=== PATIENT | female | born 1985 | race Caucasian/White ===

== ENCOUNTER 2020-12-05 10:01 | Outpatient (REF) | payer OTHER, SELFPAY ==
[2020-12-05 12:14] LABS: TSH reflex Free T4 1.75 uIU/mL (0.32-4.0)
[2020-12-05 12:19] LABS: Alanine Aminotransferase 31 U/L (0-31); Albumin Level 4.5 g/dL (3.5-5.0); Alkaline Phosphatase 84 U/L (39-117); Anion Gap 15 (12-20); Aspartate Amino Transferase 19 U/L (5-31); Bilirubin Total 0.5 mg/dL (0.0-1.0); Blood Urea Nitrogen 6 mg/dL (9-16); Calcium 8.7 mg/dL (8.4-10.2); Carbon Dioxide 23 mmol/L (22-29); Chloride 107 mmol/L (96-108); Cholesterol 73 mg/dL; Estimated Glomerular Filt Rate > 60; Glucose Fasting 100 mg/dL (60-99); HDL Cholesterol 26 mg/dL; LDL Cholesterol Calculated 36 mg/dl; Potassium 3.5 mmol/L (3.3-5.1); Sodium 141 mmol/L (135-145); Total Protein 7.3 g/dL (6.5-8.0); Triglycerides 59 mg/dL
[2020-12-08 14:47] LABS: TS Negative Control Passed; TS Panel A 0; TS Panel B 1; TS Positive Control Passed; TSpotTB Negative (SeeBelow)
== END 2020-12-05 10:02 | disposition home or self-care (01) ==
LOC: HO.HMGCLDS 10:01
PROVIDERS: PCP Nurse Practitioner Family; Visit Provider Nurse Practitioner Family
DX: Z00.00 Encounter for general adult medical examination without abnormal findings (principal); Z11.1 Encounter for screening for respiratory tuberculosis
CPT/HCPCS: 36415; 80053; 80061; 84443; 86481

== ENCOUNTER 2021-07-27 15:31 | Outpatient (REF) | payer OTHER, SELFPAY ==
--- NOTE | ~2021-07-27 | XR_ITS ---
EXAMINATION: XR CHEST CLINICAL INFORMATION: Chest pain. COMPARISON: Several priors. Most recent of 05/16/19. TECHNIQUE: 2 views of the chest were obtained. FINDINGS: The lungs are well expanded and clear. The pleural spaces are clear. The heart and mediastinal structures are normal. Schmorl's nodes are noted at several levels in the thoracic spine and are unchanged. XR/XR chest 2V IMPRESSION: Unremarkable examination. No acute cardiopulmonary disease.
== END 2021-07-27 15:32 | disposition home or self-care (01) ==
LOC: HO.HMGCX 15:31
PROVIDERS: PCP Nurse Practitioner Family; Visit Provider Internal Medicine
DX: R07.9 Chest pain, unspecified (principal)
CPT/HCPCS: 71046

== ENCOUNTER 2021-08-14 00:45 | Emergency (ER) | payer OTHER, SELFPAY ==
--- NOTE | ~2021-08-14 | XR_ITS ---
EXAMINATION: XR elbow RT min 3V, XR forearm RT 2V CLINICAL INFORMATION: Trauma COMPARISON: None. FINDINGS: No acute fracture or dislocation. Joint spaces and articular surfaces are maintained. Soft tissues unremarkable without foreign body. No elbow joint effusion. XR/XR elbow RT min 3V IMPRESSION: No acute findings
--- NOTE | ~2021-08-14 | XR_ITS ---
EXAMINATION: XR elbow RT min 3V, XR forearm RT 2V CLINICAL INFORMATION: Trauma COMPARISON: None. FINDINGS: No acute fracture or dislocation. Joint spaces and articular surfaces are maintained. Soft tissues unremarkable without foreign body. No elbow joint effusion. XR/XR forearm RT 2V IMPRESSION: No acute findings
[2021-08-14 01:35] VITALS: BP 98/61; PULSE 86; RESP 18; TEMP 36.7; O2SAT 94; BMI 31.1
--- NOTE | 2021-08-14 05:27 | ED.EXTPRO ---
HPI - Extremity Problem General Chief complaint: Extremity Injury, Upper Stated complaint: right elbow dislocated? Time Seen by Provider: 08/14/21 01:46 Source: patient Mode of arrival: ambulatory Limitations: no limitations History of Present Illness HPI Narrative: Patient comes to the emergency room complaining of right elbow pain. Patient states her elbow started hurting yesterday for no reason. Patient denies any injury. No fever, no redness. Patient states that she is able to flex and extend her elbow but it hurts. Same with the wrist. Related Data Home Medications Medication Instructions Recorded Confirmed albuterol sulfate 90 mcg/actuation 2 puff INHALATION Q4-6H PRN 11/30/20 07/25/21 aerosol inhaler (ProAir HFA) Previous Rx's Medication Instructions Recorded cetirizine 10 mg tablet (Zyrtec) 10 mg PO DAILY 90 Days #90 tab 06/22/20 cholecalciferol (vitamin D3) 50 50 mcg PO DAILY 30 Days #30 tab 06/22/20 mcg (2,000 unit) tablet buspirone 7.5 mg tablet 7.5 mg PO BID 90 Days #180 tab 07/15/21 omeprazole 20 mg capsule,delayed 20 mg PO DAILY 90 Days #90 cap 07/15/21 release clotrimazole-betamethasone 1 1 appl TOPICAL BID 14 Days #30 ml 07/25/21 %-0.05 % lotion meloxicam 15 mg tablet (Mobic) 15 mg PO DAILY #14 tab 07/27/21 ibuprofen 400 mg tablet 400 mg PO Q6H PRN #14 tab 08/14/21 Allergies Allergy/AdvReac Type Severity Reaction Status Date / Time methylphenidate Allergy Intermediate N/V, RASH, Verified 08/14/21 01:34 [From RITALIN] INSOMNIA Sulfa (Sulfonamide Allergy Unknown hives Verified 08/14/21 01:34 Antibiotics) sulfamethoxazole Allergy Rash Verified 08/14/21 01:34 [From Bactrim] trimethoprim [From Bactrim] Allergy Rash Verified 08/14/21 01:34 SEAFOOD Allergy Severe SWELLING/RA Uncoded 07/25/21 12:26 SH shellfish Allergy Severe swellig/noah Uncoded 07/25/21 12:26 h Review of Systems Review of Systems: Constitutional : No Weight loss, No Fever, No Chills, No Night Sweats, No Fatigue, No Malaise ENT/Mouth : No Hearing loss, No Ear Pain, No Nasal Congestion, No Sinus Pain, No Hoarseness, No sore throat, No Rhinorrhea, No Swallowing Difficulty Eyes: No Eye Pain, No Swelling, No Redness, No Foreign Body, No Discharge, No Vision Changes Cardiovascular : No Chest Pain, No SOB, No Dyspnea on Exertion, No Orthopnea, No Edema, No Palpitations Respiratory : No Cough, No Sputum, No Wheezing, No Smoke Exposure, No Dyspnea Gastrointestinal : No Nausea, No Vomiting, No Diarrhea, No Constipation, No abdominal Pain, No Hematochezia, No Melena Genitourinary : no irregular bleeding, No Dysuria, No Urinary Frequency, No Hematuria, No Urinary Incontinence, No Urgency, No Flank Pain, No Urinary Flow Changes, No Hesitancy Musculoskeletal : Complaining of right elbow and right wrist pain. No Myalgias, No Joint Swelling Skin : No Skin Lesions, No rash Neuro : No Weakness, No Numbness, No Paresthesias, No Loss of Consciousness, No Dizziness, No Headache Psych : No Anxiety/Panic, No Depression, No SI/HI/AH/VH, No Social Issues, Heme/Lymph: No Bruising, No Bleeding,No Lymphadenopathy Endocrine : No Polyuria, No Polydipsia, No Temperature Intolerance [facility] Social History Social History Patient Tobacco Use Status: Current everyday Tobacco user Advance Directives: No Advance Directives Information Provided: Yes Physical Exam Vital Signs: Vital Signs: Last Vital Signs Temp 98.1 F 08/14/21 01:35 Pulse 86 08/14/21 01:35 Resp 18 08/14/21 01:35 BP 98/61 08/14/21 01:35 Pulse Ox 94 08/14/21 01:35 BMI result Body Mass Index 31.1 Const: Other: Appearance: Alert. Oriented X3. No acute distress. Eyes: Pupils equal, round and reactive to light. ENT: Pharynx normal. Neck: Normal inspection. Neck supple. No lymph nodes noted. No crepitus CVS: Normal heart rate and rhythm. Pulses normal. Normal S1 and S2 Respiratory: No respiratory distress. Breath sounds normal. No Wheezing. No rales Abdomen: Soft and nontender. No rigidity. No distention. good BS x4 Skin: Skin warm and dry. Normal skin color. Normal skin turgor. Extremities: No lower extremity edema. There is no erythema, no joint effusion, no palpable mass forming 80s. Patient is able to flex and extend the elbow and the wrist with normal range of motion. Neuro: Oriented X 3. No motor deficit. No sensory deficit. Moving all extermities. No slurred speech. Course Course Course Narrative: Patient's source of pain is likely bursitis. Physical exam was normal. X-rays normal Discharge Plan Discharge Clinical Impression: Bursitis Patient Disposition: Home, Self-Care Instructions: Elbow Bursitis (ED) Additional Instructions: Please follow-up with your primary care physician tomorrow. If you have any worsening or new symptoms, please return to the emergency room or call 911 Prescriptions: New ibuprofen 400 mg tablet 400 mg PO Q6H PRN (Reason: fever or pain) Qty: 14 RF: 0 No Action cholecalciferol (vitamin D3) 50 mcg (2,000 unit) tablet 50 mcg PO DAILY 30 Days Qty: 30 RF: 0 cetirizine [Zyrtec] 10 mg tablet 10 mg PO DAILY 90 Days Qty: 90 RF: 0 omeprazole 20 mg capsule,delayed release(DR/EC) 20 mg PO DAILY 90 Days Qty: 90 RF: 0 buspirone 7.5 mg tablet 7.5 mg PO BID 90 Days Qty: 180 RF: 0 albuterol sulfate [ProAir HFA] 90 mcg/actuation HFA aerosol inhaler 2 puff inhalation Q4-6H PRNRF: 0 clotrimazole-betamethasone 1-0.05 % lotion 1 appl topical BID 14 Days Qty: 30 RF: 2 meloxicam [Mobic] 15 mg tablet 15 mg PO DAILY Qty: 14 RF: 0
== END 2021-08-14 06:34 | disposition home or self-care (01) ==
PROVIDERS: Emergency Provider Emergency Medicine; PCP Nurse Practitioner Family
DX: M70.31 Other bursitis of elbow, right elbow (principal); Y93.9 Activity, unspecified; M25.521 Pain in right elbow
CPT/HCPCS: 73080; 73090; 99283

== ENCOUNTER 2022-03-28 16:08 | Outpatient (REF) | payer OTHER, SELFPAY ==
--- NOTE | ~2022-03-28 | XR_ITS ---
EXAMINATION: XR RIBS, LEFT CLINICAL INFORMATION: Pleurodynia COMPARISON: July 27, 2021 and May 16, 2019 TECHNIQUE: 3 views of the left ribs were obtained. PA chest. FINDINGS: Lungs are clear. No consolidation, pneumothorax, or pleural effusion. The cardiomediastinal silhouette and pulmonary vasculature are normal. Osseous structures are unremarkable. Ribs are intact. No fractures are identified. No destructive bony lesion identified. XR/XR ribs LT min 3V w CXR1V IMPRESSION: No acute parenchymal disease within the chest. No left rib abnormality appreciated.
== END 2022-03-28 16:09 | disposition home or self-care (01) ==
LOC: HO.HMGCX 16:08
PROVIDERS: PCP Nurse Practitioner Family; Visit Provider Nurse Practitioner Family
DX: R07.81 Pleurodynia (principal)
CPT/HCPCS: 71101

== ENCOUNTER 2022-04-10 12:26 | Outpatient (REF) | payer OTHER, SELFPAY ==
[2022-04-10 14:00] LABS: MANUAL DIFF FLAG NO
[2022-04-10 14:07] LABS: Basophils Absolute Auto 0.1 X10*3/uL (0.0-0.2); Basophils Percent Auto 0.6 % (0-2); Eosinophils Absolute Auto 0.2 X10*3/uL (0.0-0.4); Eosinophils Percent Auto 1.6 % (0-4); Hematocrit 41.3 % (37.0-47.0); Hemoglobin 13.7 g/dl (12.0-16.0); Imm Gran Abs Auto 0.05 X10*3/uL (0.00-0.03); Imm Gran Pct Auto 0.5 % (0.0-0.4); Lymphocytes Absolute Auto 2.3 X10*3/uL (1.2-4.9); Lymphocytes Percent Auto 20.6 % (20-40); Mean Corpuscular HGB Conc 33.2 g/dl (31.0-35.0); Mean Corpuscular Hemoglobin 30.2 pg (27.0-33.0); Mean Platelet Volume 10.1 fL (9.4-12.3); Monocytes Absolute Auto 0.6 X10*3/uL (0.1-1.2); Neutrophils Absolute Auto 7.8 x10*3/uL (2.0-8.3); Neutrophils Percent Auto 71.7 % (45-73); Platelet Count 347 X10*3/uL (160-400); Red Blood Count 4.54 X10*6/uL (4.20-5.50); Red Cell Distribution Width 13.8 % (11.0-16.0); White Blood Count 10.9 X10*3/uL (4.8-10.8)
[2022-04-10 14:15] LABS: Appearance Urine Clear; Color Urine Yellow; Glucose Urine UA Negative (Negative); Leukocyte Esterase Urine Negative (Negative); Nitrite Urine Negative (Negative); PH 6.5 (5.0-9.0); Specific Gravity - Urine <= 1.005 (1.005-1.025); Urine Blood Negative (Negative); Urine Ketones Negative (Negative); Urine Protein Negative (Neg-Trace)
[2022-04-10 14:23] LABS: Alanine Aminotransferase 22 U/L (0-31); Albumin Level 4.4 g/dL (3.5-5.0); Alkaline Phosphatase 75 U/L (39-117); Anion Gap 14 (12-20); Aspartate Amino Transferase 16 U/L (5-31); Bilirubin Total 0.4 mg/dL (0.0-1.0); Blood Urea Nitrogen 5 mg/dL (9-16); Carbon Dioxide 24 mmol/L (22-29); Chloride 108 mmol/L (96-108); Cholesterol 77 mg/dL; Estimated Glomerular Filt Rate > 60; Glucose Fasting 85 mg/dL (60-99); HDL Cholesterol 31 mg/dL; LDL Cholesterol Calculated 37 mg/dl; Potassium 3.7 mmol/L (3.3-5.1); Sodium 142 mmol/L (135-145); Total Protein 7.1 g/dL (6.5-8.0); Triglycerides 46 mg/dL
[2022-04-10 14:42] LABS: TSH reflex Free T4 2.18 uIU/mL (0.32-4.0)
== END 2022-04-10 12:27 | disposition home or self-care (01) ==
LOC: HO.HMGCLDS 12:26
PROVIDERS: PCP Nurse Practitioner Family; Visit Provider Nurse Practitioner Family
DX: Z00.00 Encounter for general adult medical examination without abnormal findings (principal)
CPT/HCPCS: 36415; 80053; 80061; 81003; 84443; 85025

== ENCOUNTER 2022-04-12 10:51 | Outpatient (REF) | payer OTHER, SELFPAY ==
[2022-04-12 13:52] LABS: MANUAL DIFF FLAG NO
[2022-04-12 13:59] LABS: Basophils Absolute Auto 0.1 X10*3/uL (0.0-0.2); Basophils Percent Auto 0.8 % (0-2); Eosinophils Absolute Auto 0.2 X10*3/uL (0.0-0.4); Eosinophils Percent Auto 1.9 % (0-4); Hematocrit 41.8 % (37.0-47.0); Hemoglobin 13.7 g/dl (12.0-16.0); Imm Gran Abs Auto 0.05 X10*3/uL (0.00-0.03); Imm Gran Pct Auto 0.6 % (0.0-0.4); Lymphocytes Absolute Auto 2.3 X10*3/uL (1.2-4.9); Lymphocytes Percent Auto 25.6 % (20-40); Mean Corpuscular HGB Conc 32.8 g/dl (31.0-35.0); Mean Corpuscular Hemoglobin 30.2 pg (27.0-33.0); Mean Corpuscular Volume 92.1 fL (80.0-98.0); Mean Platelet Volume 10.6 fL (9.4-12.3); Monocytes Absolute Auto 0.6 X10*3/uL (0.1-1.2); Monocytes Percent Auto 6.3 % (2-11); Neutrophils Absolute Auto 5.9 x10*3/uL (2.0-8.3); Neutrophils Percent Auto 64.8 % (45-73); Platelet Count 345 X10*3/uL (160-400); Red Blood Count 4.54 X10*6/uL (4.20-5.50); White Blood Count 9.1 X10*3/uL (4.8-10.8)
== END 2022-04-12 10:52 | disposition home or self-care (01) ==
LOC: HO.HMGCLDS 10:51
PROVIDERS: PCP Nurse Practitioner Family; Visit Provider Nurse Practitioner Family
DX: R07.81 Pleurodynia (principal); D72.829 Elevated white blood cell count, unspecified
CPT/HCPCS: 36415; 85025

== ENCOUNTER 2022-07-18 11:21 | Outpatient (REF) | payer OTHER, SELFPAY ==
[2022-07-18 14:45] LABS: D Dimer High Sensitivity < 150 NG/ML
== END 2022-07-18 11:22 | disposition home or self-care (01) ==
LOC: HO.HMGCLDS 11:21
PROVIDERS: PCP Nurse Practitioner Family; Visit Provider Nurse Practitioner Family
DX: R07.81 Pleurodynia (principal)
CPT/HCPCS: 36415; 85379

== ENCOUNTER 2022-09-12 08:55 | Outpatient (REF) | payer OTHER, SELFPAY ==
--- NOTE | ~2022-09-12 | CT_ITS ---
EXAMINATION: CT ABDOMEN AND PELVIS WITH CONTRAST CLINICAL INFORMATION: Abdominal pain COMPARISON: None TECHNIQUE: Multidetector volumetric images were obtained from the superior aspect of the liver through the pubic symphysis following administration 85 mL of Omnipaque 350 intravenous contrast. Sagittal and coronal reformatted images were obtained on the technologist's workstation. Oral contrast: No This CT examination was performed using dose optimization techniques as appropriate, variously including the following: *Automated exposure control *Adjustment of mA and/or kV according to patient size (this includes techniques or standardized protocols for targeted exams where dose is matched to indication/reason for exam; i.e. extremities or head) *Use of iterative reconstruction technique DLP: 391 mGy-cm FINDINGS: LUNG BASES: The lung bases are clear. Heart size is normal. LIVER, GALLBLADDER, AND BILIARY TREE: The liver is normal in size, shape, and attenuation. No focal hepatic lesion or biliary ductal dilatation is present. There is a hyperdense bile in the gallbladder without wall thickening. No pericholecystic fluid collection. PANCREAS: Unremarkable. SPLEEN: Unremarkable. ADRENAL GLANDS: Unremarkable. KIDNEYS AND URETERS: The kidneys are normal in size, shape, and attenuation. No hydronephrosis, hydroureter, or calculi seen. No perinephric stranding. BLADDER: There GASTROINTESTINAL TRACT: The small and large bowel are unremarkable. The appendix is unremarkable. ABDOMINAL WALL: There is a small lumbar canal hernia and a supraumbilical hernia containing fat. LYMPH NODES: Normal. VASCULAR: Unremarkable. PELVIC VISCERA: The uterus is anteverted and appears unremarkable. No free air or free fluid seen. There is no abnormal pelvic or inguinal lymph nodes. OSSEOUS STRUCTURES: Unremarkable. CT/CT abdomen pelvis w IV con IMPRESSION: 1. No acute intra-abdominal process seen. 2. Hyperdense bile in the gallbladder without wall thickening or pericholecystic fluid collection. Fleischner guidelines were followed.
[2022-09-12] MEDS: iohexoL 350 MG/ML 100 ML INFUS..BTL IV (11:13)
[2022-09-12] MEDS: Barium Sulfate Oral (Vanilla) 450 ML ORAL.SUSP 900 ML PO (11:14)
== END 2022-09-12 08:56 | disposition home or self-care (01) ==
LOC: HO.CT 08:55
PROVIDERS: PCP Nurse Practitioner Family; Visit Provider Nurse Practitioner Family
DX: R10.9 Unspecified abdominal pain (principal)
CPT/HCPCS: 74177; Q9967

== ENCOUNTER 2022-09-26 15:21 | Outpatient (REF) | payer OTHER, SELFPAY ==
--- NOTE | ~2022-09-26 | XR_ITS ---
EXAMINATION: XR RIBS, BILATERAL CLINICAL INFORMATION: Pleurodynia. COMPARISON: None TECHNIQUE: Frontal view of chest. 3 views of the bilateral ribs were obtained. FINDINGS: Lungs are clear. No consolidation, pneumothorax, or pleural effusion. The cardiomediastinal silhouette and pulmonary vasculature are normal. Osseous structures are unremarkable. Ribs are intact. No fractures are identified. XR/XR ribs BI 3V IMPRESSION: Unremarkable examination.
--- NOTE | ~2022-09-26 | XR_ITS ---
EXAMINATION: XR CHEST CLINICAL INFORMATION: Pleurodynia. COMPARISON: Chest and rib radiographs dated 03/28/2022. TECHNIQUE: 2 views of the chest were obtained. FINDINGS: No significant abnormality is noted involving the heart, lungs, mediastinum, bony thorax or soft tissues. XR/XR chest 2V IMPRESSION: No acute cardiopulmonary process.
== END 2022-09-26 15:22 | disposition home or self-care (01) ==
LOC: HO.HMGCX 15:21
PROVIDERS: PCP Nurse Practitioner Family; Visit Provider Physician Assistant Medical
DX: R07.81 Pleurodynia (principal)
CPT/HCPCS: 71046; 71110

== ENCOUNTER 2022-10-10 10:18 | Outpatient (REF) | payer OTHER, SELFPAY ==
[2022-10-10 11:19] LABS: MANUAL DIFF FLAG NO
[2022-10-10 11:29] LABS: Appearance Urine Clear; Color Urine Yellow; Glucose Urine UA Negative (Negative); Leukocyte Esterase Urine Trace (Negative); Nitrite Urine Negative (Negative); Specific Gravity - Urine <= 1.005 (1.005-1.025); UMIC TRIGGER UACC YES; Urine Blood Negative (Negative); Urine Ketones Negative (Negative); Urine Protein Negative (Neg-Trace)
[2022-10-10 11:38] LABS: Basophils Absolute Auto 0.1 X10*3/uL (0.0-0.2); Basophils Percent Auto 0.6 % (0-2); Eosinophils Absolute Auto 0.1 X10*3/uL (0.0-0.4); Eosinophils Percent Auto 1.4 % (0-4); Hematocrit 44.9 % (37.0-47.0); Hemoglobin 14.8 g/dl (12.0-16.0); Imm Gran Abs Auto 0.03 X10*3/uL (0.00-0.03); Imm Gran Pct Auto 0.4 % (0.0-0.4); Lymphocytes Percent Auto 23.9 % (20-40); Mean Corpuscular Hemoglobin 29.8 pg (27.0-33.0); Mean Corpuscular Volume 90.3 fL (80.0-98.0); Mean Platelet Volume 9.9 fL (9.4-12.3); Monocytes Absolute Auto 0.4 X10*3/uL (0.1-1.2); Monocytes Percent Auto 4.9 % (2-11); Neutrophils Absolute Auto 5.8 x10*3/uL (2.0-8.3); Neutrophils Percent Auto 68.8 % (45-73); Platelet Count 358 X10*3/uL (160-400); Red Blood Count 4.97 X10*6/uL (4.20-5.50); Red Cell Distribution Width 13.3 % (11.0-16.0); White Blood Count 8.4 X10*3/uL (4.8-10.8)
[2022-10-10 11:57] LABS: Bacteria Urine Trace (None Seen); Hyaline Casts Urine 0-2 /LPF (0-2); RBC Urine 0-2 /HPF (0-2); Squamous Epithelial Cell Urine 0-2 /HPF (0-2); WBC Urine 0-5 /HPF (0-5)
[2022-10-10 12:16] LABS: Alanine Aminotransferase 27 U/L (0-31); Albumin Level 4.6 g/dL (3.5-5.0); Alkaline Phosphatase 88 U/L (39-117); Anion Gap 12 (12-20); Aspartate Amino Transferase 21 U/L (5-31); Bilirubin Total 0.6 mg/dL (0.0-1.0); Blood Urea Nitrogen 5 mg/dL (9-16); Calcium 8.9 mg/dL (8.4-10.2); Carbon Dioxide 25 mmol/L (22-29); Chloride 107 mmol/L (96-108); Estimated Glomerular Filt Rate > 60; Glucose Random 73 mg/dL (60-115); Lipase 27 U/L (8-78); Potassium 3.6 mmol/L (3.3-5.1); Sodium 140 mmol/L (135-145); TSH reflex Free T4 2.37 uIU/mL (0.32-4.0); Total Protein 7.4 g/dL (6.5-8.0)
[2022-10-16 14:29] LABS: Transglutaminase Ab IgG <1.0 U/mL; Transglutaminase IgA <1.0 U/mL
== END 2022-10-10 10:19 | disposition home or self-care (01) ==
LOC: HO.HMGCLDS 10:18
PROVIDERS: PCP Nurse Practitioner Family; Visit Provider Nurse Practitioner Family
DX: R10.13 Epigastric pain (principal); R10.9 Unspecified abdominal pain
CPT/HCPCS: 36415; 80053; 81001; 83690; 84443; 85025; 86364

== ENCOUNTER → 2022-10-22 14:34 | Outpatient (BNVA) | payer OTHER, SELFPAY | PROVIDERS: PCP Nurse Practitioner Family; Visit Provider Surgery | DX: M94.0 Chondrocostal junction syndrome [Tietze] (principal) | CPT/HCPCS: 99202 ==

== ENCOUNTER 2023-04-10 13:37 | Outpatient (AMB) | payer OTHER, SELFPAY ==
[2023-04-10 13:40] VITALS: BP 124/68; PULSE 77; O2SAT 98; BMI 28.7
--- NOTE | 2023-04-10 13:40 | MHC.PC.OV ---
Vital Signs 04/10/23 13:40 Height 5 ft 3 in Weight 162 lb 4 oz BMI 28.7 BP 124/68 Blood Pressure Location Rt brachial Position Sitting Pulse 77 Pulse Source Pulse Oximeter Pulse Oximetry (%) 98 Oxygen Delivery Method Room Air Intake Visit Reasons: PE Allergies methylphenidate [From RITALIN] Allergy (Intermediate, Verified 04/10/23 13:43) N/V, RASH, INSOMNIA Sulfa (Sulfonamide Antibiotics) Allergy (Unknown, Verified 04/10/23 13:43) hives sulfamethoxazole [From Bactrim] Allergy (Verified 04/10/23 13:43) Rash trimethoprim [From Bactrim] Allergy (Verified 04/10/23 13:43) Rash SEAFOOD Allergy (Severe, Uncoded 04/10/23 13:43) SWELLING/RASH shellfish Allergy (Severe, Uncoded 04/10/23 13:43) swellig/rash Medication List - Last Reconciled 04/10/23 by ARNOLDO Lomeli albuterol sulfate 90 mcg/actuation (ProAir HFA) 2 puffs inhalation Q4-6H PRN buspirone 7.5 mg PO BID 90 days cetirizine (Zyrtec) 10 mg PO DAILY 90 days cholecalciferol (vitamin D3) 50 mcg PO DAILY clotrimazole-betamethasone 1-0.05 % 1 appl topical BID 2 weeks naproxen 500 mg PO BID PRN 14 days norethindrone-e.estradiol-iron 1 mg-20 mcg (21)/75 mg (7) (08/30 (28)) 1 tab PO DAILY omeprazole 20 mg PO DAILY 90 days Tobacco use date assessed: 04/10/23 Dental Screening Dental Screen Date: 04/10/23 Did you have a dental visit in the last 12 months?: No Did you have a dental problem in the last 6 months where you did not have access to dental care?: No Was dental information given to patient?: No HPI PE HPI Details Pt is here for a PE. Will order labs. Has a outreach manager. [facility] History H/O thumb surgery Family History Paternal Grandmother Mental health disorder Social History Housing: Homeless Patient Tobacco Use Status: Current everyday Tobacco user Cigarettes Per Day: 10 e-Cigarette/Vaping Use: Never Used Second Hand Smoke Exposure: Yes service: No Current occupational status: employed Current occupation: [employer] Current occupational exposures/hazards: No Cognitive needs: No Hearing needs: No Vision needs: No Questionnaire Thrive Questionnaire Date Thrive assessed: 04/09/22 CYNDI-7 AMB Questionnaire CYNDI-7 Date CYNDI - 7 assessed: 04/09/22 Source: Developed by Drs. Oliver Brink, Quin Hunt, Torres Randhawa and colleagues, with an educational maddi from [employer]. Review of Systems Const Denies chills and Denies fever(s) Eyes Denies blurry vision ENT Denies vertigo, Denies dizziness and Denies sore throat Card Denies chest pain at rest, Denies chest pain with activity, Denies diaphoresis, Denies dyspnea and Denies dyspnea on exertion Resp Denies cough, Denies dyspnea, Denies dyspnea on exertion and Denies wheezing GI Denies abdominal pain, Denies melena, Denies hematochezia, Denies constipation, Denies diarrhea and Denies loose stools Denies hematuria Musc Denies numbness and Denies tingling Skin/Breast Denies lesions Neuro Denies vertigo, Denies dizziness, Denies numbness and Denies tingling Psych Denies anxiety, Denies depression, Denies homicidal ideation, Denies suicidal ideation and Denies other (substance abuse) Aller/Immun Denies wheezing Physical exam (Primary Care) Vital Signs: Last Vital Signs Pulse 77 04/10/23 13:40 BP 124/68 04/10/23 13:40 Pulse Ox 98 04/10/23 13:40 Oxygen Delivery Method Room Air 04/10/23 13:40 BMI result Body Mass Index 28.7 Tobacco/Smoking Status: Tobacco use Status Tobacco use date assessed 04/10/23 04/10/23 13:46 Patient Tobacco Use Status Current everyday Tobacco 04/10/23 13:46 e-Cigarette/Vaping Use Never Used 04/10/23 13:46 Thrive Assessment: Date of Thrive Assessment Date Thrive assessed 04/09/22 04/10/23 13:46 Const General: cooperative Nutritional Appearance: well nourished Orientation/consciousness: patient oriented x3 HENMT Head: Yes normal to inspection, Yes normocephalic and Yes atraumatic Ears: TM's normal bilaterally Eyes General: appearance normal, both eyes and all related structures Alignment and Position: alignment normal and position normal Neck Neck: Yes normal visual inspection and Yes no lymphadenopathy Thyroid: Thyroid normal Resp Effort & Inspection: normal respiratory effort Auscultation: clear to auscultation bilaterally Cardio Rate: regular rate Rhythm: regular rhythm Heart sounds: S1 normal heart sound present, S2 normal heart sound present and no murmurs GI Palpation (GI): Soft to palpation and nontender Auscultation: normal bowel sounds Skin Rashes: no rashes Neuro General: patient oriented x3, moves all extremities, no focal motor deficits and deep tendon reflexes 2+ bilaterally Romberg Test: Negative Extrem Other: tinea pedis noted to bilat feet, faint erythema to distal feet Psych Appearance: grossly normal Mental Status: mental status grossly normal Speech and movement: Normal speech and movement present Affect: normal affect Attitude: cooperative Thought process: Normal thought process present Thought content: Normal thought content present Insight: Good insight present (Psych) Judgement: Good judgement present (Psych) Assessment and Plan Assessment & Plan (1) Physical exam: Code(s): Z. - Encounter for general adult medical examination without abnormal findings Plan: Labs ordered Plan The patient agreed to the use of a medical sales representative for this encounter. Scribed for ARNOLDO Mcdonnell by Janina Ann medical sales representative, on 04/10/2023 at 13:55 EST. Orders: Orders Comprehensive [place]. Panel Fast Today Z00.00 - Encounter for general adult medical examination without abnormal findings Lipid Panel Today Z00.00 - Encounter for general adult medical examination without abnormal findings TSH reflex Free T4 Today Z00.00 - Encounter for general adult medical examination without abnormal findings Complete Blood Count Auto Diff Today Z00.00 - Encounter for general adult medical examination without abnormal findings UA CC w/rflx Micro + Cult Today Z00.00 - Encounter for general adult medical examination without abnormal findings Coding Level of Care Code Est Pt Prev Care [id number](99034) Diagnoses Physical exam Z00.00
== END 2023-04-10 15:06 | disposition home or self-care (01) ==
PROVIDERS: Visit Provider Nurse Practitioner Family
DX: Z00.00 Encounter for general adult medical examination without abnormal findings (principal)
CPT/HCPCS: 99395

== ENCOUNTER 2023-04-17 10:13 | Outpatient (REF) | payer OTHER, SELFPAY ==
[2023-04-17 13:26] LABS: MANUAL DIFF FLAG NO
[2023-04-17 13:43] LABS: Basophils Absolute Auto 0.1 X10*3/uL (0.0-0.2); Basophils Percent Auto 0.8 % (0-2); Eosinophils Absolute Auto 0.2 X10*3/uL (0.0-0.4); Eosinophils Percent Auto 1.8 % (0-4); Hematocrit 43.6 % (37.0-47.0); Hemoglobin 14.5 g/dl (12.0-16.0); Imm Gran Abs Auto 0.03 X10*3/uL (0.00-0.03); Imm Gran Pct Auto 0.4 % (0.0-0.4); Lymphocytes Percent Auto 22.9 % (20-40); Mean Corpuscular HGB Conc 33.3 g/dl (31.0-35.0); Mean Corpuscular Volume 90.3 fL (80.0-98.0); Mean Platelet Volume 10.3 fL (9.4-12.3); Monocytes Absolute Auto 0.5 X10*3/uL (0.1-1.2); Monocytes Percent Auto 6.2 % (2-11); Neutrophils Absolute Auto 5.8 x10*3/uL (2.0-8.3); Neutrophils Percent Auto 67.9 % (45-73); Platelet Count 314 X10*3/uL (160-400); Red Blood Count 4.83 X10*6/uL (4.20-5.50); Red Cell Distribution Width 13.6 % (11.0-16.0); White Blood Count 8.5 X10*3/uL (4.8-10.8)
[2023-04-17 13:47] LABS: Appearance Urine Clear; Color Urine Yellow; Glucose Urine UA Negative (Negative); Leukocyte Esterase Urine Negative (Negative); Nitrite Urine Negative (Negative); Specific Gravity - Urine 1.015 (1.005-1.025); Urine Blood Negative (Negative); Urine Ketones Negative (Negative); Urine Protein Negative (Neg-Trace)
[2023-04-17 14:05] LABS: Alanine Aminotransferase 36 U/L (0-31); Albumin Level 4.1 g/dL (3.5-5.0); Alkaline Phosphatase 82 U/L (39-117); Anion Gap 12 (12-20); Aspartate Amino Transferase 25 U/L (5-31); Bilirubin Total 0.5 mg/dL (0.0-1.0); Blood Urea Nitrogen 4 mg/dL (9-16); Calcium 8.8 mg/dL (8.4-10.2); Carbon Dioxide 24 mmol/L (22-29); Chloride 107 mmol/L (96-108); Cholesterol 73 mg/dL (<200); Estimated Glomerular Filt Rate > 60; Glucose Fasting 78 mg/dL (60-99); HDL Cholesterol 28 mg/dL (>40); LDL Cholesterol Calculated 33 mg/dL (<100); Potassium 3.6 mmol/L (3.3-5.1); Sodium 139 mmol/L (135-145); Triglycerides 64 mg/dL (<150)
== END 2023-04-17 10:14 | disposition home or self-care (01) ==
LOC: HO.HMGCLDS 10:13
PROVIDERS: PCP Nurse Practitioner Family; Visit Provider Nurse Practitioner Family
DX: Z00.00 Encounter for general adult medical examination without abnormal findings (principal)
CPT/HCPCS: 36415; 80053; 80061; 81003; 84443; 85025

== ENCOUNTER 2024-02-17 10:10 | Outpatient (AMB) | payer OTHER, SELFPAY ==
--- NOTE | 2024-02-17 10:13 | A.OFFPC_ITS ---
Vital Signs 02/17/24 10:15 Height 5 ft 3 in Weight 172 lb BMI 30.5 BP 130/80 Blood Pressure Location Rt brachial Position Sitting Pulse 93 Pulse Source Pulse Oximeter Pulse Oximetry (%) 98 Oxygen Delivery Method Room Air Intake Visit Reasons: F/U last seen 04/09/23 Intake Note: Patient here Allergies methylphenidate [From RITALIN] Allergy (Intermediate, Verified 02/17/24 11:31) N/V, RASH, INSOMNIA Sulfa (Sulfonamide Antibiotics) Allergy (Unknown, Verified 02/17/24 11:31) hives sulfamethoxazole [From Bactrim] Allergy (Verified 02/17/24 11:31) Rash trimethoprim [From Bactrim] Allergy (Verified 02/17/24 11:31) Rash SEAFOOD Allergy (Severe, Uncoded 02/17/24 11:31) SWELLING/RASH shellfish Allergy (Severe, Uncoded 02/17/24 11:31) swellig/rash Medication List - Last Reconciled 02/17/24 by ARNOLDO Lomeli albuterol sulfate 90 mcg/actuation 2 puffs inhalation Q4-6H PRN buspirone 7.5 mg PO BID 90 days cetirizine (Zyrtec) 10 mg PO DAILY 90 days cholecalciferol (vitamin D3) 50 mcg PO DAILY clotrimazole-betamethasone 1-0.05 % 1 appl topical BID 2 weeks medroxyprogesterone (Depo-Provera) 150 mg IM [id number] naproxen 500 mg PO BID PRN 14 days omeprazole 20 mg PO DAILY 90 days Tobacco use date assessed: 02/17/24 Dental Screening Dental Screen Date: 02/17/24 Did you have a dental visit in the last 12 months?: Yes Did you have a dental problem in the last 6 months where you did not have access to dental care?: No Was dental information given to patient?: Patient has dentist HPI F/U last seen 04/09/23 HPI Details Anxiety: Pt was taking buspirone 7.5mg bid. She reports being off her buspirone, though it does help when she is on it. Will resend this. Denies any SI and HI. [facility] Surgical History H/O thumb surgery Family History Paternal Grandmother Mental health disorder Social History Housing: Homeless Patient Tobacco Use Status: Current everyday Tobacco user Cigarettes Per Day: 10 e-Cigarette/Vaping Use: Never Used Second Hand Smoke Exposure: Yes service: No Current occupational status: employed Current occupation: [employer] Current occupational exposures/hazards: No Cognitive needs: No Hearing needs: No Vision needs: No Questionnaire PHQ-9 Over the last 2 weeks, how often have you been bothered by any of the following problems? 1. Little interest or pleasure in doing things: several days 2. Feeling down, depressed, or hopeless: several days 3. Trouble falling or staying asleep, or sleeping too much: more than half the days 4. Feeling tired or having little energy: several days 5. Poor appetite or overeating: several days 6. Feeling bad about yourself - or that you are a failure or have let yourself or your family down: several days 7. Trouble concentrating on things, such as reading the newspaper or watching television: not at all 8. Moving or speaking so slowly that other people could have noticed. Or the opposite - being so fidgety or restless that you have been moving around a lot more than usual: not at all 9. Thoughts that you would be better off or of hurting yourself in some way: not at all Total score: 7 Depression Screening Interpretation: Negative Depression Screening Done: Yes 96060 - PHQ-9 Billing: Yes Source: Developed by Drs. Oliver Brink, Quin Hunt, Torres Randhawa and colleagues, with an educational maddi from [employer]. Thrive Questionnaire Date Thrive assessed: 02/17/24 I am a: Patient What is your living situation today?: I have a steady place to live Within the past 12 months, did the food you bought not last and you didn't have the money to get more?: Never true Within the past 12 months, did you worry whether your food would run out before you got money to buy more?: Never true Do you have trouble paying for medicines?: Yes Do you have trouble getting transportation to medical appointments?: No Do you have trouble paying your heating and electricity bill?: No Do you have trouble taking care of your child, family member or friend?: No Do you have trouble with day-to-day activities such as bathing, preparing meals, shopping, managing finances, etc.?: No Are you currently unemployed and looking for a job?: No Are you interested in more education?: No Please select the resources that you would like help with: None Currently or been in a relationship where the following occur: No concerns reported THRIVE Score: 0 CYNDI-7 AMB Questionnaire CYNDI-7 Date CYNDI - 7 assessed: 02/17/24 Feeling nervous, anxious, or on edge: 2 = More than half the days Not being able to stop or control worryin = Several days Worrying too much about different things: 1 = Several days Trouble relaxin = Several days Being so restless that it is hard to sit still: 1 = Several days Becoming easily annoyed or irritable: 1 = Several days Feeling afraid as if something awful might happen: 1 = Several days Total CYNDI-7 score (0-4 normal; 5-9 mild; 10-14 moderate; 15-21 severe): 8 Source: Developed by Drs. Oliver Brink, Quin Hunt, Torres Randhawa and colleagues, with an educational maddi from [employer]. CYNDI-7 Assessment Billing CYNDI-7 Assessment Tool: CYNDI-7 Assessment 80239 Review of Systems Const Reports as per HPI Physical exam (Primary Care) Vital Signs: Last Vital Signs Pulse 93 02/17/24 10:15 BP 130/80 02/17/24 10:15 Pulse Ox 98 02/17/24 10:15 Oxygen Delivery Method Room Air 02/17/24 10:15 BMI result Body Mass Index 30.5 Tobacco/Smoking Status: Tobacco use Status Tobacco use date assessed 02/17/24 02/17/24 10:23 Patient Tobacco Use Status Current everyday Tobacco 02/17/24 10:13 e-Cigarette/Vaping Use Never Used 02/17/24 10:13 PHQ-9: PHQ-9 Score PHQ-9: Total score 7 02/17/24 11:26 Depression Screening Interpretation: Negative Thrive Assessment: Date of Thrive Assessment Date Thrive assessed 02/17/24 02/17/24 11:26 Currently or been in a relationship where the following occur: No concerns reported Const General: cooperative Orientation/consciousness: patient oriented x3 Resp Effort & Inspection: normal respiratory effort Auscultation: clear to auscultation bilaterally Cardio Rate: regular rate Rhythm: regular rhythm Heart sounds: S1 normal heart sound present and S2 normal heart sound present Neuro General: patient oriented x3 Psych Appearance: grossly normal Mental Status: mental status grossly normal Speech and movement: Normal speech and movement present Affect: normal affect Attitude: cooperative Thought process: Normal thought process present Thought content: Normal thought content present Insight: Good insight present (Psych) Judgement: Good judgement present (Psych) Assessment and Plan Assessment & Plan (1) Anxiety: Code(s): F41.9 - Anxiety disorder, unspecified Plan: Buspirone resent Plan The patient agreed to the use of a medical administrator for this encounter. Scribed for ARNOLDO Mcdonnell by Janina Ann medical administrator, on 02/17/2024 at 10:55 EST. Orders: Orders Complete Blood Count Auto Diff Today F41.9 - Anxiety disorder, unspecified Comprehensive [place]. Panel Fast Today F41.9 - Anxiety disorder, unspecified TSH reflex Free T4 Today F41.9 - Anxiety disorder, unspecified UA CC w/rflx Micro + Cult Today F41.9 - Anxiety disorder, unspecified Lipid Panel Today F41.9 - Anxiety disorder, unspecified Medications: Changed From albuterol sulfate 90 mcg/actuation (ProAir HFA) 2 puffs inhalation Q4-6H PRN To albuterol sulfate 90 mcg/actuation 2 puffs inhalation Q4-6H PRN 8.5 grams 0RF SOB Refilled buspirone 7.5 mg PO BID 180 tabs 1RF 90 days cetirizine (Zyrtec) 10 mg PO DAILY 90 tabs 0RF 90 days cholecalciferol (vitamin D3) 50 mcg PO DAILY 90 tabs 1RF naproxen please have patient stop other NSAIDs 500 mg PO BID PRN 30 tabs 0RF pain 14 days clotrimazole-betamethasone 1-0.05 % 1 appl topical BID 30 mL 2RF 2 weeks omeprazole 20 mg PO DAILY 90 caps 0RF 90 days Coding Level of Care Code Est Pt Level 3 (51334) Diagnoses Anxiety F41.9 Additional Codes CYNDI-7 Assessment Billing - CYNDI-7 Assessment Tool: CYNDI-7 Assessment 99206 ([id number])
[2024-02-17 10:15] VITALS: BP 130/80; PULSE 93; O2SAT 98; BMI 30.5
== END 2024-02-17 11:04 | disposition home or self-care (01) ==
PROVIDERS: PCP Nurse Practitioner Family; Visit Provider Nurse Practitioner Family
DX: F41.9 Anxiety disorder, unspecified (principal)
CPT/HCPCS: 99213

== ENCOUNTER 2024-02-18 09:01 | Outpatient (REF) | payer OTHER, SELFPAY ==
[2024-02-18 10:05] LABS: MANUAL DIFF FLAG NO
[2024-02-18 10:09] LABS: Appearance Urine Cloudy; Color Urine Yellow; Glucose Urine UA Negative (Negative); Leukocyte Esterase Urine Trace (Negative); Nitrite Urine Negative (Negative); Specific Gravity - Urine 1.015 (1.005-1.025); UMIC TRIGGER UACC YES; Urine Blood Negative (Negative); Urine Ketones Negative (Negative); Urine Protein Negative (Neg-Trace)
[2024-02-18 10:13] LABS: Bacteria Urine 1+ (None Seen); Hyaline Casts Urine 0-2 /LPF (0-2); RBC Urine 0-2 /HPF (0-2); WBC Urine 0-5 /HPF (0-5)
[2024-02-18 10:14] LABS: Basophils Absolute Auto 0.1 X10*3/uL (0.0-0.2); Basophils Percent Auto 0.7 % (0-2); Eosinophils Absolute Auto 0.2 X10*3/uL (0.0-0.4); Eosinophils Percent Auto 1.7 % (0-4); Hematocrit 41.9 % (37.0-47.0); Hemoglobin 14.1 g/dl (12.0-16.0); Imm Gran Abs Auto 0.04 X10*3/uL (0.00-0.03); Imm Gran Pct Auto 0.5 % (0.0-0.4); Lymphocytes Percent Auto 23.7 % (20-40); Mean Corpuscular HGB Conc 33.7 g/dl (31.0-35.0); Mean Corpuscular Hemoglobin 30.4 pg (27.0-33.0); Mean Corpuscular Volume 90.3 fL (80.0-98.0); Mean Platelet Volume 9.7 fL (9.4-12.3); Monocytes Absolute Auto 0.4 X10*3/uL (0.1-1.2); Monocytes Percent Auto 4.9 % (2-11); Neutrophils Absolute Auto 5.9 x10*3/uL (2.0-8.3); Neutrophils Percent Auto 68.5 % (45-73); Platelet Count 342 X10*3/uL (160-400); Red Blood Count 4.64 X10*6/uL (4.20-5.50); Red Cell Distribution Width 14.6 % (11.0-16.0); White Blood Count 8.6 X10*3/uL (4.8-10.8)
[2024-02-18 11:11] LABS: Alanine Aminotransferase 30 U/L (0-31); Albumin Level 4.2 g/dL (3.5-5.0); Alkaline Phosphatase 84 U/L (39-117); Anion Gap 11 (12-20); Aspartate Amino Transferase 22 U/L (5-31); Bilirubin Total 0.8 mg/dL (0.0-1.0); Blood Urea Nitrogen 6 mg/dL (9-16); Calcium 8.8 mg/dL (8.4-10.2); Carbon Dioxide 23 mmol/L (22-29); Chloride 108 mmol/L (96-108); Cholesterol 72 mg/dL (<200); Estimated Glomerular Filt Rate > 60; Glucose Fasting 89 mg/dL (60-99); HDL Cholesterol 25 mg/dL (>40); LDL Cholesterol Calculated 34 mg/dL (<100); Potassium 3.3 mmol/L (3.3-5.1); Sodium 139 mmol/L (135-145); TSH reflex Free T4 3.47 uIU/mL (0.32-4.0); Triglycerides 68 mg/dL (<150)
== END 2024-02-18 09:02 | disposition home or self-care (01) ==
LOC: HO.HMGCLDS 09:01
PROVIDERS: PCP Nurse Practitioner Family; Visit Provider Nurse Practitioner Family
DX: F41.9 Anxiety disorder, unspecified (principal)
CPT/HCPCS: 36415; 80053; 80061; 81001; 84443; 85025

== ENCOUNTER 2024-08-17 10:00 | Outpatient (AMB) | payer OTHER, SELFPAY ==
[2024-08-17 10:02] VITALS: BP 122/80; PULSE 82; O2SAT 98; BMI 31.7
--- NOTE | 2024-08-17 10:02 | A.OFFPC_ITS ---
Vital Signs 08/17/24 10:02 Height 5 ft 3 in Weight 179 lb BMI 31.7 BP 122/80 Blood Pressure Location Rt brachial Position Sitting Pulse 82 Pulse Source Pulse Oximeter Pulse Oximetry (%) 98 Intake Visit Reasons: 6 month f/u Intake Note: pt is here for 6 mon f/up Client Solutions Specialist Required: No Allergies methylphenidate [From RITALIN] Allergy (Intermediate, Verified 08/17/24 10:02) N/V, RASH, INSOMNIA Sulfa (Sulfonamide Antibiotics) Allergy (Unknown, Verified 08/17/24 10:02) hives sulfamethoxazole [From Bactrim] Allergy (Verified 08/17/24 10:02) Rash trimethoprim [From Bactrim] Allergy (Verified 08/17/24 10:02) Rash SEAFOOD Allergy (Severe, Uncoded 02/17/24 11:31) SWELLING/RASH shellfish Allergy (Severe, Uncoded 02/17/24 11:31) swellig/rash Medication List - Last Reconciled 08/17/24 by JOSE LomeliP- albuterol sulfate 90 mcg/actuation 2 puffs inhalation Q4-6H PRN 30 days buspirone 7.5 mg PO BID 90 days cetirizine (Zyrtec) 10 mg PO DAILY 90 days cholecalciferol (vitamin D3) 50 mcg PO DAILY clotrimazole 1% (Lotrimin AF (clotrimazole)) 1 appl topical BID 4 weeks clotrimazole-betamethasone 1-0.05 % 1 appl topical BID 2 weeks meclizine 25 mg PO DAILY PRN 12 days medroxyprogesterone (Depo-Provera) 150 mg IM [id number] naproxen 500 mg PO BID PRN 14 days omeprazole 20 mg PO DAILY 90 days Tobacco use date assessed: 08/17/24 Dental Screening Dental Screen Date: 08/17/24 Did you have a dental visit in the last 12 months?: Yes Did you have a dental problem in the last 6 months where you did not have access to dental care?: No Was dental information given to patient?: Patient has dentist HPI 6 month f/u HPI Details Chief Complaint Intermittent dizziness History of Present Illness The patient is a 39-year-old female presenting with intermittent dizziness. She reports that the dizziness began recently and occurs sporadically. She denies experiencing nausea, vomiting, fevers, chills, ear pain, or headaches accompanying the dizziness. The patient has not previously been treated for this issue and describes the symptoms as fair in terms of severity. No specific incidents have been identified as triggers, and she has not observed any consi stent patterns preceding the episodes. She has not sought any prior medical evaluation or treatment for these symptoms. Social History Health Maintenance Review of Systems - Neurological: Reports intermittent diz ziness; Denies headaches - Gastrointestinal: Denies nausea and vo miting - Constitutional: Denies fevers and chil ls - ENT: Denies ear pain Physical Exam General: Cooperative, healthy appearing, comfortable, no acute distress and well developed Orientation: Patient oriented x3 Limitations: No limitations Head: Normal to inspection Ears: Hearing grossly normal bilaterally, TMs were easily seen without signs of infection Nose: Normal external nose present Face and sinus: Normal facial exam Eyes: Appearance normal, both eyes and all related structures Neck: Normal visual inspection and Yes full ROM Respiratory: Normal respiratory effort and able to speak in complete sentences. Clear to auscultation bilaterally Cardiovascular: Regular rate and rhythm. Normal S1 and S2 GI: Normal to inspection. Soft to palpation and nontender Skin: No rashes or lesions noted Neuro: Patient oriented x3, CN2 through 12 intact, neg alexander Santos [place] Extremities: Normal to inspection Results Plan - Initiate treatment with meclizine to m anage dizziness. - Encourage increased fluid intake to ai d in symptom management. Patient was informed and verbally consented to the use of an ambient scribe for clinic note documentation during this visit. Discussion Notes I discussed the intermittent dizziness with the patient and recommended starting on meclizine, as this could help alleviate her symptoms. I explained how meclizine works in reducing dizziness and discussed its potential side effects, expressing the need to monitor her response to the medication. Increasing fluid intake was also advised to prevent dehydration, which can contribute to dizziness. We reviewed her symptoms comprehensively and excluded other concerning features such as nausea or focal neurological deficits that might necessitate further investigation at this time. The patient's understanding of the treatment plan and the reasoning behind it was confirmed. Patient Instructions - Begin taking meclizine as directed to manage dizziness. - Increase fluid intake throughout the d ay. - Monitor for any side effects or change s in symptoms and seek care if symptoms worsen. PFSH Medical History Right lateral epicondylitis Surgical History H/O thumb surgery Family History Paternal Grandmother Mental health disorder Social History Housing: Homeless Patient Tobacco Use Status: Current everyday Tobacco user Cigarettes Per Day: 10 e-Cigarette/Vaping Use: Never Used Second Hand Smoke Exposure: Yes service: No Current occupational status: employed Current occupation: [employer] Current occupational exposures/hazards: No Cognitive needs: No Hearing needs: No Vision needs: No Questionnaire PHQ-9 Over the last 2 weeks, how often have you been bothered by any of the following problems? 1. Little interest or pleasure in doing things: several days 2. Feeling down, depressed, or hopeless: several days 3. Trouble falling or staying asleep, or sleeping too much: not at all 4. Feeling tired or having little energy: several days 5. Poor appetite or overeating: not at all 6. Feeling bad about yourself - or that you are a failure or have let yourself or your family down: not at all 7. Trouble concentrating on things, such as reading the newspaper or watching television: not at all 8. Moving or speaking so slowly that other people could have noticed. Or the opposite - being so fidgety or restless that you have been moving around a lot more than usual: not at all 9. Thoughts that you would be better off or of hurting yourself in some way: not at all Total score: 3 Depression Screening Interpretation: Negative Depression Screening Done: Yes 29371 - PHQ-9 Billing: Yes Source: Developed by Drs. Oliver Brink, Quin Hnut, Torres Randhawa and colleagues, with an educational maddi from [employer]. Thrive Questionnaire Date Thrive assessed: 08/17/24 I am a: Patient What is your living situation today?: I have a steady place to live Within the past 12 months, did the food you bought not last and you didn't have the money to get more?: Never true Within the past 12 months, did you worry whether your food would run out before you got money to buy more?: Never true Do you have trouble paying for medicines?: No Do you have trouble getting transportation to medical appointments?: No Do you have trouble paying your heating and electricity bill?: No Do you have trouble taking care of your child, family member or friend?: No Do you have trouble with day-to-day activities such as bathing, preparing meals, shopping, managing finances, etc.?: No Are you currently unemployed and looking for a job?: No Are you interested in more education?: No Please select the resources that you would like help with: None Currently or been in a relationship where the following occur: No concerns reported THRIVE Score: 0 AUDIT C Alcohol Use Questionnaire (AUDIT-C) 1. How often do you have a drink containing alcohol?: Never 3. How often do you have six or more drinks on one occasion?: Never Total Score: 0 Score Reviewed/Action Taken: Yes CYNDI-7 AMB Questionnaire CYNDI-7 Date CYNDI - 7 assessed: 08/17/24 Feeling nervous, anxious, or on edge: 1 = Several days Not being able to stop or control worryin = Not at all Worrying too much about different things: 0 = Not at all Trouble relaxin = Not at all Being so restless that it is hard to sit still: 0 = Not at all Becoming easily annoyed or irritable: 1 = Several days Feeling afraid as if something awful might happen: 0 = Not at all Total CYNDI-7 score (0-4 normal; 5-9 mild; 10-14 moderate; 15-21 severe): 2 Source: Developed by Drs. Oliver Brink, Quin Hunt, Torres Randhawa and colleagues, with an educational maddi from [employer]. CYNDI-7 Assessment Billing CYNDI-7 Assessment Tool: CYNDI-7 Assessment 97597 Physical exam (Primary Care) Vital Signs: Last Vital Signs Pulse 82 08/17/24 10:02 BP 122/80 08/17/24 10:02 Pulse Ox 98 08/17/24 10:02 BMI result Body Mass Index 31.7 Tobacco/Smoking Status: Tobacco use Status Tobacco use date assessed 08/17/24 08/17/24 10:03 Patient Tobacco Use Status Current everyday Tobacco 08/17/24 10:03 e-Cigarette/Vaping Use Never Used 08/17/24 10:03 PHQ-9: PHQ-9 Score PHQ-9: Total score 3 08/17/24 10:18 Depression Screening Interpretation: Negative Thrive Assessment: Date of Thrive Assessment Date Thrive assessed 08/17/24 08/17/24 10:03 Currently or been in a relationship where the following occur: No concerns reported Coding Level of Care Code Est Pt Level 3 (65037) Diagnoses Dizziness R42 Additional Codes CYNDI-7 Assessment Billing - CYNDI-7 Assessment Tool: CYNDI-7 Assessment 53824 ([id number]) PHQ-9 - 21613 - PHQ-9 Billing: Yes ([id number]) Assessment & Plan Assessment & Plan (1) Dizziness: Code(s): R42 - Dizziness and giddiness Category: Medical Plan . Orders: Orders Complete Blood Count Auto Diff Today R42 - Dizziness and giddiness TSH reflex Free T4 Today R42 - Dizziness and giddiness UA CC w/rflx Micro + Cult Today R42 - Dizziness and giddiness Comprehensive [place]. Panel Fast Today R42 - Dizziness and giddiness Lipid Panel Today R42 - Dizziness and giddiness Medications: New meclizine 25 mg PO DAILY 12 days PRN 12 tabs 0RF motion sickness
== END 2024-08-17 10:53 | disposition home or self-care (01) ==
PROVIDERS: PCP Nurse Practitioner Family; Visit Provider Nurse Practitioner Family
DX: R42 Dizziness and giddiness (principal)

== ENCOUNTER → 2024-08-17 10:00 | Outpatient (BNVA) | payer OTHER, SELFPAY | PROVIDERS: PCP Nurse Practitioner Family; Visit Provider Nurse Practitioner Family | DX: R42 Dizziness and giddiness (principal) | CPT/HCPCS: 96127; 99212 ==

== ENCOUNTER 2024-08-20 08:45 | Outpatient (REF) | payer OTHER, SELFPAY ==
[2024-08-20 10:13] LABS: MANUAL DIFF FLAG NO
[2024-08-20 10:15] LABS: Basophils Absolute Auto 0.1 X10*3/uL (0.0-0.2); Eosinophils Absolute Auto 0.1 X10*3/uL (0.0-0.4); Eosinophils Percent Auto 2.1 % (0-4); Hematocrit 44.3 % (37.0-47.0); Imm Gran Abs Auto 0.02 X10*3/uL (0.00-0.03); Imm Gran Pct Auto 0.3 % (0.0-0.4); Lymphocytes Percent Auto 29.4 % (20-40); Mean Corpuscular HGB Conc 33.9 g/dl (31.0-35.0); Mean Corpuscular Hemoglobin 30.8 pg (27.0-33.0); Mean Platelet Volume 9.9 fL (9.4-12.3); Monocytes Absolute Auto 0.5 X10*3/uL (0.1-1.2); Neutrophils Absolute Auto 4.1 x10*3/uL (2.0-8.3); Neutrophils Percent Auto 60.2 % (45-73); Platelet Count 316 X10*3/uL (160-400); Red Blood Count 4.87 X10*6/uL (4.20-5.50); Red Cell Distribution Width 13.5 % (11.0-16.0); White Blood Count 6.7 X10*3/uL (4.8-10.8)
[2024-08-20 11:40] LABS: Appearance Urine Clear; Glucose Urine UA Negative (Negative); Leukocyte Esterase Urine Small (1+) (Negative); Nitrite Urine Negative (Negative); UMIC TRIGGER UACC YES; Urine Blood Large (3+) (Negative); Urine Ketones Negative (Negative); Urine Protein 30 (1+) mg/dL (Neg-Trace)
[2024-08-20 11:41] LABS: Color Urine Dark Yellow
[2024-08-20 11:42] LABS: Bacteria Urine 3+ (None Seen); Hyaline Casts Urine 0-2 /LPF (0-2); RBC Urine >20 /HPF (0-2); UACC Culture Trigger YES; WBC Urine >50 /HPF (0-5)
[2024-08-20 11:53] LABS: Alanine Aminotransferase 76 U/L (0-31); Albumin Level 4.3 g/dL (3.5-5.0); Alkaline Phosphatase 97 U/L (39-117); Anion Gap 11 (12-20); Aspartate Amino Transferase 53 U/L (5-31); Bilirubin Total 0.5 mg/dL (0.0-1.0); Blood Urea Nitrogen 9 mg/dL (9-16); Carbon Dioxide 28 mmol/L (22-29); Chloride 107 mmol/L (96-108); Cholesterol 83 mg/dL (<200); Estimated Glomerular Filt Rate > 60; Glucose Fasting 84 mg/dL (60-99); HDL Cholesterol 30 mg/dL (>40); LDL Cholesterol Calculated 43 mg/dL (<100); Potassium 3.6 mmol/L (3.3-5.1); Sodium 142 mmol/L (135-145); Total Protein 7.3 g/dL (6.5-8.0); Triglycerides 53 mg/dL (<150)
[2024-08-20 11:59] LABS: TSH reflex Free T4 3.98 uIU/mL (0.32-4.0)
== END 2024-08-20 08:46 | disposition home or self-care (01) ==
LOC: HO.HMGCLDS 08:45
PROVIDERS: PCP Nurse Practitioner Family; Visit Provider Nurse Practitioner Family
DX: R42 Dizziness and giddiness (principal)
CPT/HCPCS: 36415; 80053; 80061; 81001; 81003; 84443; 85025; 87086

== ENCOUNTER 2024-08-24 10:09 | Outpatient (REF) | payer OTHER, SELFPAY ==
[2024-08-24 14:18] LABS: HBS Num1 382.18 mIU/mL (0-7.99); HBc Num1 0.06 S/CO (0.00-0.79); HBsAGNum1 0.38 S/CO (0.00-0.99); Hepatitis B Core Antibody Nonreactive (Nonreactive); Hepatitis B Surface Antigen Negative (Negative); ~HepC Num1 0.08 S/CO (0.00-0.79); ~Hepatitis A Antibody IgM Nonreactive (Nonreactive); ~Hepatitis B Surface Antibody REACTIVE (Nonreactive); ~Hepatitis C Antibody Nonreactive (Nonreactive)
== END 2024-08-24 10:10 | disposition home or self-care (01) ==
LOC: HO.HMGCLDS 10:09
PROVIDERS: PCP Nurse Practitioner Family; Visit Provider Nurse Practitioner Family
DX: R74.8 Abnormal levels of other serum enzymes (principal)
CPT/HCPCS: 36415; 86704; 86706; 86709; 86803; 87340

== ENCOUNTER 2024-09-09 09:53 | Outpatient (REF) | payer OTHER, SELFPAY ==
--- NOTE | ~2024-09-09 | US_ITS ---
CLINICAL HISTORY: R74.8 - Abnormal levels of other serum enzymes US abdomen complete Comparison: None Findings: The visualized pancreas is normal. The aorta and inferior vena cava are normal caliber. The liver is enlarged at 24 cm and echogenic. There is no intrahepatic bile duct dilatation. The common duct is 6 mm in diameter. Gallstones are noted. No gallbladder wall thickening. No pericholecystic fluid. There is no sonographic Sue sign. The main portal vein is antegrade. The right kidney is 12.1 cm in length. The left kidney is 12.4 cm in length. The spleen is normal. No ascites. IMPRESSION: Hepatomegaly and hepatic steatosis. Cholelithiasis without evidence of cholecystitis. This document has been electronically signed by: Adam Burnett MD on 09/09/2024 12:25:20
--- OUTSIDE RECORDS SUMMARY | 2024-09-09 12:58 | XMS_ITS | Clinical Summary ---
Author Organization [facility] it Address [address] [place] [address] Care Team Providers Care Set Up Mechanic Name Role Phone Unavailable Primary Care Provider Unavailabl e Surgical History Surgery Date Site/Laterality Comments ESOPHAGOGASTRODUODENOSCOPY 11/30/07 PROCEDURE: NE EGD TRANSORAL BIOPSY SINGLE/MULTIPLE; COMMENT: Bilious fluid in the stomach. Mild gastrits-bx:mild chemical gastropathy. Nl Sb-bx:normal Medical History Medical History Date Comments Wrist fracture DX:Wrist fractur e; COMMENT: left wrist 2 fx ; right wrist 3 fx all as a child Abdominal pain, epigastric 10/22/2007 DX:Ab dominal pain, epigastric Family History Medical History Relation Name Comments Diabetes Mother Relation Name Status Comments Brother Alive 4,healthy Father Alive healthy Mother Alive Social History Tobacco Use Types Packs/Day Years Used Date Smoking Tobacco: Every Day Cigarettes Smokeless Tobacco: Current Alcohol Use Standard Drinks/Week Comments No 0 (1 standard drink = 0.6 oz pur e alcohol) Sex and Gender Information Value Date Recorded Sex Assigned at Not on file Gender Identity Not on file Sexual Orientation Not on file Obstetrics History Plan of Treatment Health Maintenance Due Date Last Done Comments Hepatitis B Vaccines (1 of 3 - 19+ 3-dose series) 02/15/2004 Cervical Cancer Screening: P ap Smear 2006 DTaP,Tdap,and Td Vaccines (3 - Td or Tdap) 12/06/2020 12/06/2010, 01/24/2006 COVID-19 Vaccine ( - 2023-2 5 season) 2024 Influenza Vaccine (#1) 2024 09/14/2013 HIB Vaccines Aged Out No longer eligi ble based on patient's age to complete this topic HPV Vaccines Aged Out No longer eligi ble based on patient's age to complete this topic Hepatitis A Vaccines Aged Out No long er eligible based on patient's age to complete this topic IPV Vaccines Aged Out No longer eligi ble based on patient's age to complete this topic MMR Vaccines Aged Out No longer eligi ble based on patient's age to complete this topic Meningococcal ACWY Vaccine Aged Out N o longer eligible based on patient's age to complete this topic Pneumococcal Vaccine: Pediatrics (0 to 5 Years) and At-Risk Patients (6 to 64 Years) Aged Out No longer eligible b ased on patient's age to complete this topic RSV Immunization Patients Under 20 months Aged Out No longer eligible b ased on patient's age to complete this topic Varicella Vaccines Aged Out No longer eligible based on patient's age to complete this topic
== END 2024-09-09 09:54 | disposition home or self-care (01) ==
LOC: HO.HMGCX 09:53
PROVIDERS: PCP Nurse Practitioner Family; Visit Provider Nurse Practitioner Family
DX: R74.8 Abnormal levels of other serum enzymes (principal)
CPT/HCPCS: 76700

== ENCOUNTER → 2024-09-09 09:56 | Outpatient (BNV) | payer OTHER, SELFPAY | PROVIDERS: PCP Nurse Practitioner Family; Visit Provider Radiology Vascular & Interventional Radiology | DX: R74.01 Elevation of levels of liver transaminase levels (principal) | CPT/HCPCS: 76700 ==

== ENCOUNTER 2024-10-19 09:10 | Outpatient (REF) | payer OTHER, SELFPAY ==
--- OUTSIDE RECORDS SUMMARY | 2024-10-19 11:49 | XMS_ITS | Clinical Summary ---
Author Organization [facility] it Address [address] [place] [address] Care Team Providers Care Acetaldehyde Converter Operator Name Role Phone Unavailable Primary Care Provider Unavailabl e Surgical History Surgery Date Site/Laterality Comments ESOPHAGOGASTRODUODENOSCOPY 11/30/07 PROCEDURE: MD EGD TRANSORAL BIOPSY SINGLE/MULTIPLE; COMMENT: Bilious fluid [...]
== END 2024-10-19 09:11 | disposition home or self-care (01) ==
LOC: HO.LAB 09:10
PROVIDERS: PCP Nurse Practitioner Family
DX: B34.9 Viral infection, unspecified (principal)
CPT/HCPCS: 99212

== ENCOUNTER 2024-10-19 09:10 | Outpatient (AMB) | payer OTHER, SELFPAY ==
--- NOTE | 2024-10-19 09:37 | AM.OFFWIN_ITS ---
Intake Vital Signs 10/19/24 09:51 Weight 170 lb BP 122/70 Blood Pressure Location Rt brachial Position Sitting Pulse 115 H Pulse Source Pulse Oximeter Temp 100.3 F Temp Source Oral Pulse Oximetry (%) 97 Oxygen Delivery Method Room Air Intake Visit Reasons: EPchest pain, [id number] Intake Note: Patient here for dry mouth, severe headache, chest pain, SOB and vomiting that has been present for a couple of days. she states she recently was in the ED over the weekend. Patient Tobacco Use Status: Current everyday Tobacco user Allergies methylphenidate [From RITALIN] Allergy (Intermediate, Verified 10/19/24 09:52) N/V, RASH, INSOMNIA Sulfa (Sulfonamide Antibiotics) Allergy (Unknown, Verified 10/19/24 09:52) hives sulfamethoxazole [From Bactrim] Allergy (Verified 10/19/24 09:52) Rash trimethoprim [From Bactrim] Allergy (Verified 10/19/24 09:52) Rash SEAFOOD Allergy (Severe, Uncoded 10/19/24 09:52) SWELLING/RASH shellfish Allergy (Severe, Uncoded 10/19/24 09:52) swellig/rash Do you need a note to return to daycare/school/sports/work: No HPI HPI Comments History of Present Illness Details History - The patient is a 39-year-old female pr esenting with symptoms of shortness of breath and chest pain over several days. - Examination and testing 3 days ago at [place] emergency department, including negative results for COVID-19, RSV, and influenza, and a normal chest X-ray, have been undertaken. Patient was not prescribed any medications and denies being diagnosed with anything. - The patient reports that asthma treatm ents including frequent use of an inhaler have provided no relief. - Current medications include Zyrtec and omeprazole, with self-reported hepatic sensitivity to Tylenol. - Notably, the patient is a current smok er, though she has substantially reduced her consumption in recent days. - Symptoms are exacerbated by physical a ctivity and are alleviated temporarily by vomiting. - The patient is experiencing poor/low d ietary intake Physical Exam General: Cooperative, healthy appearing, comfortable and no acute distress Orientation/consciousness: Patient oriented x3 Limitations: No limitations Head: Normal to inspection Ears: Hearing grossly normal bilaterally, external ears normal and TM's normal bilaterally Nose: Normal external nose present, Normal nares present and No nasal discharge present Face and sinus: Normal facial exam and Yes sinuses nontender Mouth: White coating present on tongue, not fully removable Throat: Yes tonsils normal, Yes uvula midline. Posterior oropharynx erythema Eyes: Appearance normal, both eyes and all related structures Neck: Normal visual inspection Respiratory: Clear but dim to auscultation bilaterally. Normal respiratory effor t, able to speak in complete sentences, no respiratory distress, not tachypneic, no tripod positioning and no use of accessory muscles Cardiovascular: Regular rate and rhythm. Normal S1 and S2 Skin: No rashes or lesions noted Neuro: Patient oriented x3 Extremities: Normal to inspection and Yes no clubbing, cyanosis or edema PFSH Medical History (Updated 10/19/24 @ 10:14 by Sonia Miller PA-C) Fatty liver Right lateral epicondylitis Surgical History H/O thumb surgery Family History Paternal Grandmother Mental health disorder Social History Housing: Homeless Patient Tobacco Use Status: Current everyday Tobacco user Cigarettes Per Day: 10 e-Cigarette/Vaping Use: Never Used Second Hand Smoke Exposure: Yes service: No Current occupational status: employed Current occupation: [employer] Current occupational exposures/hazards: No Cognitive needs: No Hearing needs: No Vision needs: No Review of Systems Const All systems reviewed & are unremarkable except as noted in HPI and below Physical Exam Vital Signs: Last Vital Signs Pulse 115 H 10/19/24 09:51 BP 122/70 10/19/24 09:51 Pulse Ox 97 10/19/24 09:51 Oxygen Delivery Method Room Air 10/19/24 09:51 Assessment & Plan Assessment & Plan (1) Acute viral syndrome: Code(s): B34.9 - Viral infection, unspecified Plan: VSS, pt well appearing, PE unremarkable however pt short of breath, will get CXR. The patient presents with an lower respiratory infection, for which a repeat viral panel and a follow-up chest X-ray have been ordered to reassess potential developments. A course of prednisone will be initiated due to suspected asthma exacerbation, offering symptomatic relief for respiratory distress. The addition of a decongestant alongside current allergy medications may alleviate nasal congestion, aiding symptoms. Fluid intake will be crucial in maintaining hydration and supporting recovery; thus, the patient is advised to consume water and low-sugar electrolyte drinks. Given the likelihood of a temporary fever, Tylenol use is permitted on an as-needed basis, provided careful monitoring of hepatic function. The cessation of smoking will be encouraged due to its adverse effects on respiratory health. Patient was informed and verbally consented to the use of an ambient scribe for clinic note documentation during this visit Orders: Orders XR chest 2V Today R05.9 - Cough, unspecified SARS-CoV2/FLU/RSV Today R09.89 - Other specified symptoms and signs involving the circulatory and respiratory systems Coding Level of Care Code Est Pt Level 4 (29799) Diagnoses Acute viral syndrome B34.9
[2024-10-19 09:51] VITALS: BP 122/70; PULSE 115; TEMP 37.9; O2SAT 97
--- OUTSIDE RECORDS SUMMARY | 2024-10-19 10:13 | XMS_ITS | Clinical Summary ---
Author Organization [facility] it Address [address] [place] [address] Care Team Providers Care Rail Gang Supervisor Name Role Phone Unavailable Primary Care Provider Unavailabl e Surgical History Surgery Date Site/Laterality Comments ESOPHAGOGASTRODUODENOSCOPY 11/30/07 PROCEDURE: NM EGD TRANSORAL BIOPSY SINGLE/MULTIPLE; COMMENT: Bilious fluid [...] drink = 0.6 oz pur e alcohol) Comments Unknown Sex and Gender Information Value Date Recorded Sex Assigned at Not on file Legal Sex Female 9:18 AM EST Gender Identity Not on file Sexual Orientation [...] patient's age to complete this topic Meningococcal B Vacine Aged Out No lo nger eligible based on patient's age to complete [...]
== END 2024-10-19 10:18 | disposition home or self-care (01) ==
PROVIDERS: PCP Nurse Practitioner Family; Visit Provider Physician Assistant
DX: B34.9 Viral infection, unspecified (principal)

== ENCOUNTER 2024-10-19 10:14 | Outpatient (REF) | payer OTHER, SELFPAY ==
--- NOTE | ~2024-10-19 | XR_ITS ---
EXAMINATION: XR CHEST 2 VIEWS HISTORY: R05.9 - Cough, unspecified COMPARISON: Comparison is made with the prior examination dated 09/26/2022. FINDINGS: PA and lateral views of the chest are submitted. There is linear subsegmental atelectasis at both lung bases. There is also the suggestion of a retrocardiac opacity on the PA view which is not confirmed on the lateral view. There is no pleural effusion, pneumothorax, or pulmonary vascular congestion. The heart is normal in size. The bones are intact. XR/XR chest 2V IMPRESSION: Right basilar subsegmental atelectasis. Possible left lower lobe opacity, best seen on the frontal view. This may represent pneumonia. Follow-up is recommended to document resolution. Electronically signed by: Oliver Harris MD 10/19/2024 10:35 AM EDT
[2024-10-19 15:31] LABS: Influenza A PCR NEGATIVE (Negative); Influenza B PCR NEGATIVE (Negative); Resp Syncy Virus RNA Qual PCR NEGATIVE (Negative); SARS COV2 PCR INHOUSE NEGATIVE (Negative)
== END 2024-10-19 10:15 | disposition home or self-care (01) ==
LOC: HO.HMGCX 10:14
PROVIDERS: PCP Nurse Practitioner Family; Visit Provider Physician Assistant
DX: R05.9 Cough, unspecified (principal); R09.89 Other specified symptoms and signs involving the circulatory and respiratory systems
CPT/HCPCS: 0241U; 71046

== ENCOUNTER → 2024-10-19 10:19 | Outpatient (BNV) | payer OTHER, SELFPAY | PROVIDERS: PCP Nurse Practitioner Family; Visit Provider Radiology Diagnostic Radiology | DX: R05.9 Cough, unspecified (principal) | CPT/HCPCS: 71046 ==

== ENCOUNTER 2025-07-06 15:32 | Outpatient (AMB) | payer OTHER, SELFPAY ==
--- NOTE | 2025-07-06 15:37 | MHC.PC.OV ---
Vital Signs 07/06/25 15:38 Height 5 ft 3 in Weight 179 lb BMI 31.7 BP 100/60 Blood Pressure Location Lt brachial Position Sitting Respiration 16 Pulse 60 Pulse Source Pulse Oximeter Pulse Oximetry (%) 97 Oxygen Delivery Method Room Air Intake Visit Reasons: Annual PE Drinking Water Technician Required: No Accompanied by: Self / Same As Patient Allergies methylphenidate (From RITALIN) Allergy (Intermediate, Verified 07/06/25 15:43) N/V, RASH, INSOMNIA Sulfa (Sulfonamide Antibiotics) Allergy (Unknown, Verified 07/06/25 15:43) hives sulfamethoxazole (From Bactrim) Allergy (Verified 07/06/25 15:43) Rash trimethoprim (From Bactrim) Allergy (Verified 07/06/25 15:43) Rash SEAFOOD Allergy (Severe, Uncoded 07/06/25 15:43) SWELLING/RASH shellfish Allergy (Severe, Uncoded 07/06/25 15:43) swellig/rash Medication List - Last Reconciled 07/06/25 by JOSE LomeliP- albuterol sulfate 90 mcg/actuation 2 puffs inhalation Q4-6H PRN 30 days buspirone 7.5 mg PO BID 90 days cetirizine (Zyrtec) 10 mg PO DAILY 90 days cholecalciferol (vitamin D3) 50 mcg PO DAILY clotrimazole 1% (Lotrimin AF (clotrimazole)) 1 appl topical BID 4 weeks clotrimazole-betamethasone 1-0.05 % 1 appl topical BID 2 weeks meclizine 25 mg PO DAILY PRN 12 days medroxyprogesterone (Depo-Provera) 150 mg IM [id number] methylprednisolone PO PER PKG DIR for 6 days naproxen 500 mg PO BID PRN 14 days omeprazole 20 mg PO DAILY 90 days Tobacco use date assessed: 07/06/25 Dental Screening Dental Screen Date: 07/06/25 Did you have a dental visit in the last 12 months?: Yes Did you have a dental problem in the last 6 months where you did not have access to dental care?: No Was dental information given to patient?: Patient has dentist HPI Annual PE HPI Details History of Present Illness The patient is a 40 year old individual presenting for a physical examination. The patient reports experiencing some anxiety but denies any suicidal or homicidal ideation. The patient denies chest pain, shortness of breath, abdominal pain, bloody stool, constipation, or diarrhea. The patient unfortunately continues to smoke cigarettes. The patient has a BILINGUAL SPEECH THERAPIST provider. Health Maintenance - The patient is due for a mammogram as the patient is now 40. - The patient has a BILINGUAL SPEECH THERAPIST provider. - The patient will undergo fasting labs in the near future. Social History - Substance Use: The patient continues to smoke cigarettes. Review of Systems - Constitutional: Reports doing well overall. - Cardiovascular: Denies chest pain. - Respiratory: Denies shortness of breath. - Gastrointestinal: Denies abdominal pain, blood in stool, constipation, and diarrhea. - Psychiatric: Reports anxiety. Denies suicidal or homicidal ideation. Physical Exam General: Cooperative, healthy appearing, comfortable, no acute distress and well developed Orientation: Patient oriented x3 Limitations: No limitations Head: Normal to inspection Ears: Hearing grossly normal bilaterally Nose: Normal external nose present Face and sinus: Normal facial exam Eyes: Appearance normal, both eyes and all related structures Neck: Normal visual inspection and Yes full ROM Respiratory: Normal respiratory effort and able to speak in complete sentences. Clear to auscultation bilaterally Cardiovascular: Regular rate and rhythm. Normal S1 and S2 GI: Normal to inspection. Soft to palpation and nontender Skin: No rashes or lesions noted Neuro: Patient oriented x3 Extremities: Normal to inspection Results Plan 1. Anxiety Behav health colleague will contact the patient to facilitate a referral to a therapist and possibly a psychiatrist for management of anxiety. 2. Tobacco Use The patient continues to smoke cigarettes. 3. Encounter For General Adult Medical Examination The patient is doing well overall. An order for a mammogram will be placed, as the patient is now 40 years old and due for screening. Fasting labs will be obtained in the near future. Discussion Notes I noted the patient has some anxiety and will have staff reach out to facilitate a referral to a therapist and possibly a psychiatrist. Since the patient is now 40, I have placed an order for a mammogram. We will also arrange for the patient to get fasting labs done in the near future. I also noted the patient's continued use of cigarettes. Patient Instructions - Our office staff will be in contact with you to help set up an appointment with a therapist and possibly a psychiatrist to help with your anxiety. - An order for a mammogram has been placed for you, as this is recommended now that you are 40 years old. - You will need to get lab work done in the near future. This will require you to fast beforehand. [facility] Medical History Fatty liver Right lateral epicondylitis Surgical History H/O thumb surgery Family History Paternal Grandmother Mental health disorder Social History Housing: Homeless Patient Tobacco Use Status: Current everyday Tobacco user Cigarettes Per Day: 10 e-Cigarette/Vaping Use: Never Used Second Hand Smoke Exposure: Yes service: No Current occupational status: employed Current occupation: [employer] Current occupational exposures/hazards: No Cognitive needs: No Hearing needs: No Vision needs: No Questionnaire PHQ-9 Over the last 2 weeks, how often have you been bothered by any of the following problems? 1. Little interest or pleasure in doing things: not at all 2. Feeling down, depressed, or hopeless: not at all 3. Trouble falling or staying asleep, or sleeping too much: not at all 4. Feeling tired or having little energy: not at all 5. Poor appetite or overeating: not at all 6. Feeling bad about yourself - or that you are a failure or have let yourself or your family down: not at all 7. Trouble concentrating on things, such as reading the newspaper or watching television: not at all 8. Moving or speaking so slowly that other people could have noticed. Or the opposite - being so fidgety or restless that you have been moving around a lot more than usual: not at all 9. Thoughts that you would be better off or of hurting yourself in some way: not at all Total score: 0 Depression Screening Interpretation: Negative Depression Screening Done: Yes 62698 - PHQ-9 Billing: Yes Source: Developed by Drs. Oliver Brink, Quin Hunt, Torres Randhawa and colleagues, with an educational maddi from [employer]. Thrive Questionnaire Date Thrive assessed: 08/17/24 I am a: Patient What is your living situation today?: I have a steady place to live Within the past 12 months, did the food you bought not last and you didn't have the money to get more?: Never true Within the past 12 months, did you worry whether your food would run out before you got money to buy more?: Never true Do you have trouble paying for medicines?: No Do you have trouble getting transportation to medical appointments?: No Do you have trouble paying your heating and electricity bill?: No Do you have trouble taking care of your child, family member or friend?: No Do you have trouble with day-to-day activities such as bathing, preparing meals, shopping, managing finances, etc.?: No Are you currently unemployed and looking for a job?: No Are you interested in more education?: No Please select the resources that you would like help with: None Currently or been in a relationship where the following occur: No concerns reported THRIVE Score: 0 CYNDI-7 AMB Questionnaire CYNDI-7 Date CYNDI - 7 assessed: 07/06/25 Feeling nervous, anxious, or on edge: 0 = Not at all Not being able to stop or control worryin = Not at all Worrying too much about different things: 0 = Not at all Trouble relaxin = Not at all Being so restless that it is hard to sit still: 0 = Not at all Becoming easily annoyed or irritable: 0 = Not at all Feeling afraid as if something awful might happen: 0 = Not at all Total CYNDI-7 score (0-4 normal; 5-9 mild; 10-14 moderate; 15-21 severe): 0 Source: Developed by Drs. Oliver Brink, Quin Hunt, Torres Randhawa and colleagues, with an educational maddi from [employer]. CYNDI-7 Assessment Billing CYNDI-7 Assessment Tool: CYNDI-7 Assessment 39677 Physical exam (Primary Care) Vital Signs: Last Vital Signs Pulse 60 07/06/25 15:38 Resp 16 07/06/25 15:38 BP 100/60 07/06/25 15:38 Pulse Ox 97 07/06/25 15:38 Oxygen Delivery Method Room Air 07/06/25 15:38 BMI result Body Mass Index 31.7 Tobacco/Smoking Status: Tobacco use Status Tobacco use date assessed 07/06/25 07/06/25 15:46 Patient Tobacco Use Status Current everyday Tobacco 07/06/25 15:40 e-Cigarette/Vaping Use Never Used 07/06/25 15:40 PHQ-9: PHQ-9 Score PHQ-9: Total score 0 07/06/25 15:46 Depression Screening Interpretation: Negative Thrive Assessment: Date of Thrive Assessment Date Thrive assessed 08/17/24 07/06/25 15:40 Currently or been in a relationship where the following occur: No concerns reported Coding Level of Care Code Est Pt Prev Care 40-64y(29858) Diagnoses Physical exam Z00.00 Additional Codes CYNDI-7 Assessment Billing - CYNDI-7 Assessment Tool: CYNDI-7 Assessment 75815 ([id number]) PHQ-9 - 64245 - PHQ-9 Billing: Yes ([id number]) Assessment & Plan Assessment & Plan (1) Physical exam: Code(s): Z00.00 - Encounter for general adult medical examination without abnormal findings Category: Medical Plan . Orders: Orders Comprehensive Acra. Panel Fast Today Z00.00 - Encounter for general adult medical examination without abnormal findings TSH reflex Free T4 Today Z00.00 - Encounter for general adult medical examination without abnormal findings UA CC w/rflx Micro + Cult Today Z00.00 - Encounter for general adult medical examination without abnormal findings Complete Blood Count Auto Diff Today Z00.00 - Encounter for general adult medical examination without abnormal findings Lipid Panel Today Z00.00 - Encounter for general adult medical examination without abnormal findings MM screening mammo BI Today Z12.31 - Encounter for screening mammogram for malignant neoplasm of breast
[2025-07-06 15:38] VITALS: BP 100/60; PULSE 60; RESP 16; O2SAT 97; BMI 31.7
--- OUTSIDE RECORDS SUMMARY | 2025-07-06 17:47 | XMS_ITS | Clinical Summary ---
Author Organization [facility] it Address [address] [place] [address] Care Team Providers Care Platform Consultant Name Role Phone Unavailable Primary Care Provider Unavailabl e Surgical History Surgery Date Site/Laterality Comments ESOPHAGOGASTRODUODENOSCOPY 11/30/07 PROCEDURE: PA EGD TRANSORAL BIOPSY SINGLE/MULTIPLE; COMMENT: Bilious fluid [...] Health Maintenance Due Date Last Done Comments Breast Cancer Screening 1985 Hepatitis B Vaccines (1 of 3 - 19+ 3-dose series) 02/15/2004 Cervical Cancer Screening: P ap Smear 2006 HPV Vaccines (1 - 3-dose SCD M series) 02/15/2012 DTaP,Tdap,and Td Vaccines (3 - Td or Tdap) 12/06/2020 12/06/2010, 01/24/2006 Depression Screening 08/11/2024 COVID-19 Vaccine ( - 2024-2 6 season) 2025 Influenza Vaccine (#1) 2025 09/14/2013 RSV Immunization Adult Patients (1 - 1-dose 75+ series) 02/15/2060 HIB Vaccines Aged Out No longer eligi [...] age to complete this topic Meningococcal B Vaccine Aged Out No l onger eligible based on patient's age to complete this topic Pneumococcal Vaccine: Pediatrics (0 to 5 Years) and At-Risk Patients (6 to 49 Years) Aged Out No longer eligible b ased on patient's age to complete this topic RSV Immunization Patients Under 20 months Aged Out No longer eligible b ased on patient's age to complete this topic Varicella Vaccines Aged Out No longer eligible based on patient's age to complete this topic
== END 2025-07-06 16:56 | disposition home or self-care (01) ==
LOC: HO.HMCC 15:33
PROVIDERS: PCP Nurse Practitioner Family; Visit Provider Nurse Practitioner Family
DX: Z00.00 Encounter for general adult medical examination without abnormal findings (principal)

== ENCOUNTER → 2025-07-06 15:32 | Outpatient (BNVA) | payer OTHER, SELFPAY | PROVIDERS: PCP Nurse Practitioner Family; Visit Provider Nurse Practitioner Family | DX: Z00.00 Encounter for general adult medical examination without abnormal findings (principal); F41.9 Anxiety disorder, unspecified; F17.210 Nicotine dependence, cigarettes, uncomplicated | CPT/HCPCS: 96127; 99396 ==

== ENCOUNTER 2025-07-15 15:56 | Outpatient (REF) | payer OTHER, SELFPAY ==
--- NOTE | ~2025-07-15 | MM_ITS ---
EXAMINATION: MM SCREENING DIGITAL BREAST TOMOSYNTHESIS, BILATERAL CLINICAL INFORMATION: Screening. Asymptomatic. COMPARISON: Mammography: Baseline. TECHNIQUE: Digital breast mammography with tomosynthesis is performed in both the craniocaudal and mediolateral oblique views along with computer-aided detection (CAD). FINDINGS: There are scattered areas of fibroglandular density. There are no significant masses, abnormal calcifications, or other abnormalities. MM/MM tomosynthesis screening BI IMPRESSION: No mammographic evidence of malignancy. ASSESSMENT: BI-RADS Category 1: Negative RECOMMENDATION: Routine annual mammography screening. 1 year F/U This examination should not preclude the clinical evaluation of a suspicious palpable abnormality. This patient's information was entered into a reminder system with a target due date for their next mammogram. Electronically signed by: Zohreh Ho DO 07/18/2025 01:02 PM PATRICIA CASEY
--- OUTSIDE RECORDS SUMMARY | 2025-07-15 19:45 | XMS_ITS | Clinical Summary ---
Author Organization [facility] it Address [address] [place] [address] Care Team Providers Care Medical Doctor Name Role Phone Unavailable Primary Care Provider Unavailabl e Surgical History Surgery Date Site/Laterality Comments ESOPHAGOGASTRODUODENOSCOPY 11/30/07 PROCEDURE: DE EGD TRANSORAL BIOPSY SINGLE/MULTIPLE; COMMENT: Bilious fluid [...]
== END 2025-07-15 15:57 | disposition home or self-care (01) ==
LOC: HO.MAMMO 15:56
PROVIDERS: PCP Nurse Practitioner Family; Visit Provider Nurse Practitioner Family
DX: Z12.31 Encounter for screening mammogram for malignant neoplasm of breast (principal)
CPT/HCPCS: 77063; 77067

== ENCOUNTER → 2025-07-15 16:00 | Outpatient (BNV) | payer OTHER, SELFPAY | PROVIDERS: PCP Nurse Practitioner Family; Visit Provider Internal Medicine | DX: Z12.31 Encounter for screening mammogram for malignant neoplasm of breast (principal) | CPT/HCPCS: 77063; 77067 ==